=== PATIENT | female | born 1960 | race Caucasian/White ===

== ENCOUNTER → 2016-10-31 | Outpatient (REF) | LOC: ZLAB.WCH 16:02 | DX: Z01.89 Encounter for other specified special examinations (principal) ==

== ENCOUNTER → 2017-09-28 | Outpatient (REF) ==
[2017-09-28 18:52] LABS: C-REACTIVE PROTEIN < 0.5 mg/dL (0.0-0.9); IRON,SERUM 66 ug/dL (35-150)
[2017-09-28 18:58] LABS: TOTAL IRON BINDING CAPACITY 343 ug/dL (265-497)
[2017-09-28 19:26] LABS: FERRITIN 35 ng/mL (11-264)
== END ==
LOC: ZLAB.WCH 18:13
PROVIDERS: Internal Medicine
DX: Z01.89 Encounter for other specified special examinations (principal)

== ENCOUNTER → 2017-10-23 | Outpatient (CLI) | payer OTHER | LOC: MC.RAD 07:41 | DX: Z12.31 Encounter for screening mammogram for malignant neoplasm of breast (principal) ==

== ENCOUNTER → 2018-11-09 | Outpatient (REF) ==
[2018-11-09 17:22] LABS: THYROID STIMULATING HORMONE 0.29 uIU/mL (0.465-4.680)
== END ==
LOC: ZLAB.WCH 15:57
PROVIDERS: Internal Medicine
DX: Z01.89 Encounter for other specified special examinations (principal)

== ENCOUNTER → 2019-01-05 | Outpatient (CLI) | payer OTHER | LOC: MC.RAD 09:48 | DX: Z12.31 Encounter for screening mammogram for malignant neoplasm of breast (principal) ==